=== PATIENT | male | born 1960 ===

== ENCOUNTER 2017-03-17 12:22 | Emergency (ER) | payer SELFPAY ==
[2017-03-17 12:27] VITALS: BMI 29.0
[2017-03-17 12:37] VITALS: TEMP 98.7
--- NOTE | 2017-03-17 13:22 | C.PDOC ---
History Of Present Illness 56 y/o male patient presents to ED with complaints of itchy rash to bilateral forearms and right side of neck. Patient states on Friday he was out on his garden and felt itching that day, the following day he saw the rash. Patient has applied Topical cream from pharmacy with no improvement. Patient states he has history of similar episodes in the past. No known allergen. No difficulty breathing or swallowing. Denies fever, sob, n/v/d or any other complaints at this time. Time Seen by Provider: 03/17/17 12:38 Chief Complaint (Nursing): Abnormal Skin Integrity History Per: Patient, Family History/Exam Limitations: language barrier Onset/Duration Of Symptoms: Days Current Symptoms Are (Timing): Still Present Quality Of Symptoms: Itching Past Medical History Reviewed: Historical Data, Nursing Documentation, Vital Signs Vital Signs: Last Vital Signs Temp 98.7 F 03/17/17 12:27 Pulse 68 03/17/17 13:36 Resp 16 03/17/17 13:36 BP 163/99 H 03/17/17 13:36 Pulse Ox 98 03/17/17 15:15 Family History: States: No Known Family Hx - Social History Hx Alcohol Use: No Hx Substance Use: No - Immunization History Hx Tetanus Toxoid Vaccination: No Hx Influenza Vaccination: No Hx Pneumococcal Vaccination: No Review Of Systems Except As Marked, All Systems Reviewed And Found Negative. Constitutional: Negative for: Fever, Chills Respiratory: Negative for: Shortness of Breath Gastrointestinal: Negative for: Nausea, Vomiting, Diarrhea Skin: Positive for: Rash Physical Exam - Physical Exam Appears: Non-toxic, No Acute Distress Skin: Warm, Rash ((+) Vesicles on erythematous base to bilat forearms and right side of neck, no purulent discharge) Head: Atraumatic, Normacephalic Eye(s): bilateral: Normal Inspection, EOMI Nose: Normal Oral Mucosa: Moist Chest: Symmetrical Respiratory: No Accessory Muscle Use Extremity: Normal ROM, No Tenderness, Capillary Refill (< 2 sec) Extremity: Bilateral: Normal ROM Pulses: Left Radial: Normal, Right Radial: Normal Neurological/Psych: Oriented x3, Normal Speech, Normal Motor, Normal Sensation ED Course And Treatment O2 Sat by Pulse Oximetry: 98 (RA) Pulse Ox Interpretation: Normal Progress Note: Patient was informed that their BP is elevated in the ED. They were advised to follow up with their physician or the [facility] for follow up and treatment. The risks of untreated hypertension were explained to patient. Woun check in 2 days. Reevaluation Time: 13:10 Reassessment Condition: Improved Disposition - Disposition Referrals: Esdras Ocampo [Staff Provider] - Disposition: HOME/ ROUTINE Disposition Time: 13:20 Condition: STABLE Additional Instructions: Vaya a huerta mdico o la clnica en 1-3 grijalva sin falta, para mas evaluacin. [place] lizy medicamentos pipe indicado. Volver a la maxwell de emergencia en cualquier momento si los sntomas persisten o empeoran. Prescriptions: DiphenhydrAMINE [Benadryl] 25 mg PO Q6 #20 cap Mupirocin 2% Ointment [Bactroban Ointment] 1 appl TP TID #1 tube predniSONE [Prednisone] 40 mg PO DAILY #8 tab Instructions: Poison Lizbeth (ED) Print Language: H[place] KONGER - Clinical Impression Clinical Impression: Contact dermatitis - Scribe Statement The provider has reviewed the documentation as recorded by the [facility] All medical record entries made by the Scribe were at my direction and personally dictated by me. I have reviewed the chart and agree that the record accurately reflects my personal performance of the history, physical exam, medical decision making, and the department course for this patient. I have also personally directed, reviewed, and agree with the discharge instructions and disposition.
[2017-03-17 13:36] VITALS: BP 163/99; PULSE 68; RESP 16
[2017-03-17 14:32] VITALS: O2SAT 98
== END 2017-03-17 14:10 | disposition home or self-care (01) ==
LOC: C.ER 12:22
DX: L25.9 Unspecified contact dermatitis, unspecified cause (principal)
CPT/HCPCS: 96374; 99283; J2930

== ENCOUNTER 2017-03-24 14:49 | Emergency (ER) | payer SELFPAY ==
[2017-03-24 14:49] VITALS: BMI 29.0
[2017-03-24 15:05] VITALS: TEMP 98.7
--- NOTE | 2017-03-24 17:01 | C.PDOC ---
History Of Present Illness 56 y/o male sent to emergency department by [facility] for evaluation of high blood pressure. Pt was seen here on for rash due to poison atnon with elevated blood pressure then. He was told to follow up with PMD which he did today, blood pressure more elevated today than before. He denies headache, chest pain, SOB, abdominal pain, nausea, vomiting, diarrhea, cough, fever, chills or any other complaints. Time Seen by Provider: 03/24/17 16:31 Chief Complaint (Nursing): High Blood Pressure History Per: Patient History/Exam Limitations: no limitations Onset/Duration Of Symptoms: Days Current Symptoms Are (Timing): Worse Associated Symptoms: denies: Chest Pain, Dizziness, Headache Quality Of Symptoms: Asymptomatic Severity: Mild Recent travel outside of the [place]: No Past Medical History Reviewed: Historical Data, Nursing Documentation, Vital Signs Vital Signs: Last Vital Signs Temp 98.7 F 03/24/17 15:01 Pulse 77 03/24/17 18:37 Resp 18 03/24/17 18:37 BP 165/98 H 03/24/17 18:37 Pulse Ox 100 03/24/17 18:37 Family History: States: Unknown Family Hx - Social History Hx Alcohol Use: No Hx Substance Use: No - Immunization History Hx Tetanus Toxoid Vaccination: No Hx Influenza Vaccination: No Hx Pneumococcal Vaccination: No Review Of Systems Except As Marked, All Systems Reviewed And Found Negative. Constitutional: Negative for: Fever, Chills Cardiovascular: Negative for: Chest Pain Respiratory: Negative for: Cough, Shortness of Breath Gastrointestinal: Negative for: Nausea, Vomiting, Abdominal Pain, Diarrhea Genitourinary: Negative for: Dysuria, Frequency, Hematuria Neurological: Negative for: Headache, Dizziness Physical Exam - Physical Exam Appears: Non-toxic, No Acute Distress Skin: No Rash Head: Atraumatic, Normacephalic Neck: Normal, Normal ROM Cardiovascular: Rhythm Regular, No Murmur, Other (blood pressure elevated) Respiratory: Normal Breath Sounds, No Rales, No Rhonchi, No Wheezing Gastrointestinal/Abdominal: Normal Exam, Soft, No Tenderness Extremity: Bilateral: Atraumatic Neurological/Psych: Oriented x3, Normal Speech, Normal Cognition ED Course And Treatment - Laboratory Results Result Diagrams: 03/24/17 17:05 03/24/17 17:05 O2 Sat by Pulse Oximetry: 99 (room air) Pulse Ox Interpretation: Normal Progress Note: Plan: labs, EKG, lisinopril, microzide Disposition Counseled Patient/Family Regarding: Studies Performed, Diagnosis, Need For Followup, Rx Given - Disposition Referrals: [facility] [Outside] Disposition: HOME/ ROUTINE Disposition Time: 18:42 Condition: STABLE Prescriptions: Lisinopril/Hydrochlorothiazide [Lisinopril-Hctz 10-12.5 mg Tab] 1 each PO DAILY #20 tablet Instructions: Hypertension (DC) Forms: [employer] (Lao), Work Excuse - POA Present On Arrival: None - Clinical Impression Clinical Impression: Hypertension - Scribe Statement The provider has reviewed the documentation as recorded by the Tommie Sagastume Provider Attestation: All medical record entries made by the Tommie were at my direction and personally dictated by me. I have reviewed the chart and agree that the record accurately reflects my personal performance of the history, physical exam, medical decision making, and the department course for this patient. I have also personally directed, reviewed, and agree with the discharge instructions and disposition.
[2017-03-24 17:10] LABS: BASO # 0.1 K/uL (0.0-0.2); BASO % 0.8 % (0.0-2.0); EOS # 0.4 K/uL (0.0-0.7); EOS % 3.3 % (0.0-4.0); HEMOGLOBIN 16.4 g/dL (12.0-18.0); LYMPH # 3.1 K/uL (1.0-4.3); LYMPH % 22.9 % (20.0-40.0); MEAN CELL VOLUME 84.2 fL (80.0-94.0); MEAN CORPUSCULAR HEMOGLOBIN 28.8 pg (27.0-31.0); MEAN CORPUSCULAR HGB CONC 34.2 g/dL (33.0-37.0); MEAN PLATELET VOLUME 10.1 fL (7.2-11.7); MONO # 1.1 K/uL (0.0-0.8); MONO % 8.3 % (0.0-10.0); NEUT # 8.7 K/uL (1.8-7.0); NEUT % 64.7 % (50.0-75.0); NRBC % 0.1 % (0.0-2.0); RBC 5.71 Mil/uL (4.40-5.90); WHITE BLOOD COUNT 13.5 K/uL (4.8-10.8)
[2017-03-24 17:20] LABS: BLOOD UREA NITROGEN 16 mg/dL (9-20); CALCIUM 8.2 mg/dl (8.6-10.4); GFR AFRICAN-AMERICAN > 60; GFR NON-AFRICAN AMERICAN > 60
[2017-03-24 18:38] VITALS: BP 165/98; PULSE 77; RESP 18
[2017-03-24 18:43] VITALS: O2SAT 99
--- NOTE | 2017-03-25 18:50 | CARD ---
APPROVED REPORT EKG Measurement Heart [id number] <Conclusion> Normal sinus rhythm Possible Left atrial enlargement Left ventricular hypertrophy Abnormal ECG
== END 2017-03-24 19:20 | disposition home or self-care (01) ==
LOC: C.ER 14:49
DX: I10 Essential (primary) hypertension (principal)